=== PATIENT | female | born 1980 | race African-American/Black ===

== ENCOUNTER 2024-10-14 19:17 | Emergency (ER) | payer OTHER, SELFPAY ==
[2024-10-14 19:19] VITALS: BP 133/79
[2024-10-14 20:32] VITALS: BP 130/64
[2024-10-14 21:00] VITALS: BP 136/77
[2024-10-14 21:17] LABS: Hematocrit 36.6 % (37.0-47.0); Hemoglobin 12.1 g/dL (12.0-16.0); Mean Corp Hgb Conc. 33.1 g/dL (33.0-37.0); Mean Corpuscular Volume 77.1 fL (81.0-99.0); Nucleated Red Blood Cells % 0 %; Platelet Count 248 10^3/uL (130-400); Red Cell Dist. Width 15.0 % (11.5-14.5)
--- NOTE | 2024-10-14 21:40 | ED.GENMED ---
History of Present Illness
General
Chief Complaint: Headache
Source: patient
Exam Limitations: none
Time Seen by Provider: 10/14/24 20:27
Nursing documentation reviewed up to this point in time: agreed with
History of Present Illness
History of Present Illness:
44-year-old female past medical history of previous TBI presenting to the emergency department today with concerns of multiple days of head pressure anterior and posterior aspect of the head with some light sensitivity some nausea. Claims that she
has had headaches before this she has been more persistent than usual. She denies any numbness weakness. Also had some chest pain today described as a pressure not currently present but was active earlier today. Denies any associated shortness of
breath nausea vomiting. Has noted some leg swelling to her left leg today has had this intermittently over the past few years.
Review of Systems
Review of Systems
Allergies reviewed?: Yes
All Other Systems: ROS reviewed and negative except as documented in HPI and ROS
Phy Exam
Physical Exam
Physical Exam:
GENERAL: Alert , in no apparent distress
EYE: pupils equal and reactive
NECK: Supple, no significant adenopathy.
ENT: o/p clr, mmm.
CARDIAC: Regular rate and rhythm .
LUNGS: Clear breath sounds bilaterally, no acute respiratory distress, no wheezes/rales/rhonchi
ABDOMEN: Soft, without focal tenderness, no r/g, no cvat
NEUROLOGICAL: Alert and oriented, no focal neuro deficits
SKIN: Warm and dry, skin intact.
MUSCULOSKELETAL: No edema, well perfused.
PSYCH: Normal and appropriate interaction.
Course
Orders/Labs/Results
Orders:
Orders
10/14/24 19:26
EKG [Electrocardiogram (*1)] Urgent
Reason for Study: Chest Pain
EKG- Treatment ONCE
10/14/24 21:09
Cardiac Monitoring- Treatment ONCE
IV Insert/Care/Rem.- Treatment PRN
Pulse Ox/spot Check [RESP] Urgent
Quantity: 1
Special Instructions: ON ROOM AIR
10/14/24 21:10
Test Result ONCE
10/14/24 21:11
Basic Metabolic Panel Urgent
Complete Blood Count/With Diff Urgent
HCG, Serum Qualitative Screen Urgent
Comment: Notify provider if positive test present
Troponin I Urgent
10/14/24 21:22
CT Head W/o Iv Contrast Urgent
Comment:
Reason For Exam: head pressure hx of TBI
10/14/24 21:23
Venous Doppler Lwr Ext Left [US Periph Venous LOWER Ext LT] Urgent
Comment:
Reason For Exam: leg swelling
10/14/24 21:24
D-Dimer Urgent
10/15/24 00:00
CT Chest PE Study Urgent
Reason For Exam: cp elevated dimer, leg swelling
Abnormal Lab Results
10/14/24 10/14/24
21:11 21:24
Hct 36.6 L %
(37.0-47.0)
MCV 77.1 L fL
(81.0-99.0)
MCH 25.5 L pg
(27.0-31.0)
RDW 15.0 H %
(11.5-14.5)
Monocytes % 10.3 H %
(1.7-9.3)
D-Dimer 0.76 H ug/mlFEU
(0.00-0.50)
Chloride 109 H mmol/L
(98-107)
10/14/24 21:11
10/14/24 21:11
Vital Signs
Initial and Last Documented VS:
Initial Vital Signs
Temp Pulse Resp BP Pulse Ox
98 F 89 16 133/79 99
10/14/24 19:19 10/14/24 19:19 10/14/24 19:19 10/14/24 19:19 10/14/24 19:19
Last Documented Vital Signs
Temp Pulse Resp BP Pulse Ox
98 F 73 12 138/70 97
10/14/24 19:19 10/15/24 00:00 10/14/24 21:15 10/15/24 00:00 10/15/24 00:00
MDM/Problems Addressed
MDM/Problems Addressed:
44-year-old female presenting to the emergency department today with concerns of head pressure worsening headache over the past 2 days. Denies any numbness weakness changes in vision. Vital signs normal on arrival. Also complaining of
intermittent chest pain none at present. Also does have slightly swollen left leg has had this intermittently. Ultrasound negative to the left leg no signs of DVT otherwise labs unremarkable D-dimer was elevated CT PE was performed did not show
any signs of blood clot. Patient stable throughout ER stay no signs of emergent process at this time advised for close outpatient follow-up. Return precautions given.
*Pulse Oximetry
SaO2: 99
Oxygen Mode of Delivery: Room air
Patient hypoxic: no (97)
*Critical Care Note
Total Time (30-74mins, 75-104mins- exclusive of procedures): Not Applicable
ED Attending Note
-
Portions of this chart may have been created with voice recognition software.� Occasional wrong word or��sound alike� substitutions may have occurred due to the inherent limitations of voice recognition software.
Discharge Plan
Departure
Patient Disposition: Home (Routine Discharge)
Date of Disposition: 10/15/24
Time of Disposition: 01:58
Patient with high blood pressure during this ER visit?: No
Condition: Good
Covid-19: Not Applicable
Discharge Problem:
Chest pain, Headache
Instructions: Chest Pain CBC Follow Up
Referrals:
Howard Wang Jr., MD [Family Provider, Internal Medicine]
Activity Restrictions/Additional Instructions:
You came to the emergency department today with concerns of chest pain and headache.. You had a reassuring assessment. Please work closely with cardiology and your primary care doctor. Return for any worsening, new or concerning symptoms.
Interventions
Interventions:
*Risk Screen - Suicide Last Done: 10/14/24 19:19
*General Assessment Last Done: 10/14/24 19:19
*Neglect/Abuse Screening Last Done: 10/14/24 19:19
ED- Neurological Assessment Last Done: 10/14/24 20:50
Discharge Date and Time
Print Language: GERMAN
[2024-10-14 21:42] LABS: Troponin I < 0.012 ng/ml
[2024-10-14 21:44] LABS: D-Dimer 0.76 ug/mlFEU (0.00-0.50)
[2024-10-14 21:52] LABS: HCG, Serum Qualitative Screen Negative
[2024-10-14 21:54] LABS: Blood Urea Nitrogen 13 mg/dl (7-17); Calcium 9.0 mg/dl (8.4-10.2); Carbon Dioxide 26 mmol/L (22-30); Chloride 109 mmol/L (98-107); Glucose 84 mg/dl (70-99); Sodium 139 mmol/L (135-145); eGFR > 60.00
[2024-10-14 22:00] VITALS: BP 152/90
[2024-10-14 23:00] VITALS: BP 134/71
[2024-10-15] VITALS: BP 138/70
== END 2024-10-15 02:25 | disposition home or self-care (01) ==
LOC: EMR 19:17
PROVIDERS: Physician Assistant; EMERGENCY PHYSICIAN Emergency Medicine; FAMILY PHYSICIAN Internal Medicine
DX: R07.9 Chest pain, unspecified (principal); R51.9 Headache, unspecified; R22.42 Localized swelling, mass and lump, left lower limb
CPT/HCPCS: 99284; 70450; 71275; 80048; 84484; 84703; 85025; 85379; 93005; 93971; Q9967